=== PATIENT | male | born 1945 | race Caucasian/White ===

== ENCOUNTER 2017-10-17 20:14 | Emergency (ER) | payer OTHER ==
[~2017-10-17] VITALS: Ht 170.2 cm; Wt 101.1 kg
[~2017-10-17 20:14] MED LIST: ALBUTEROL2.5 MG/3 M IH; ALPRAZOLAM0.25 M2 PO; ASPIR 8181 M1 PO; B-100 COMPLEX1 EACH PO; CINNAMON500 MG PO; CYMBALTA30 MG PO; DUONEB 2.5-0.5 M3 ML IH; FLECTOR 1.3%1 PATC1 TD; FLOVENT 22120 INHALA IH; LOVENOX100 MG/1 M SC; MECLIZINE HCL25 MG PO; METOPROLOL TART50 MG PO; OMEPRAZOLE20 MG PO; PREDNISONE20 MG PO; SPIRIVA1 INHALATI IH; TOPROL XL50 MG PO; VENTOLIN HFA18 GM IH; VISINE LONG LAS30 ML BOTH EYES; VITAMIN B12 100MCG PO; WARFARIN SODIU7.5 MG PO; WARFARIN SODIUM5 MG PO
[2017-10-17 22:52] LABS: INTER. NORMALIZED RATIO 3.6
[2017-10-17 23:30] VITALS: BP 178/72
== END 2017-10-17 23:31 | disposition home or self-care (01) ==
LOC: RME 20:14 → EME 20:14 → RME 23:31
PROVIDERS: Physician Assistant
DX: S09.90XA Unspecified injury of head, initial encounter (principal); S00.83XA Contusion of other part of head, initial encounter; S00.11XA Contusion of right eyelid and periocular area, initial encounter; S00.81XA Abrasion of other part of head, initial encounter; S02.2XXA Fracture of nasal bones, initial encounter for closed fracture; W17.89XA Other fall from one level to another, initial encounter; Z79.01 Long term (current) use of anticoagulants; Z79.82 Long term (current) use of aspirin; Z86.711 Personal history of pulmonary embolism; I10 Essential (primary) hypertension; Z87.891 Personal history of nicotine dependence
CPT/HCPCS: 70450; 70486; 85610; 99281; 99284